=== PATIENT | female | born 2000 | race Caucasian/White ===

== ENCOUNTER 2018-01-14 12:06 | Emergency (ER) | payer OTHER ==
[2018-01-14] MEDS ORDERED: Nitrazine Tape 1 ROLL ONE (12:24)
[2018-01-14] MEDS ORDERED: Sodium Chloride 0.9% 2,000 ML ONE (12:29)
== END 2018-01-14 13:22 | disposition home or self-care (01) ==
LOC: NAV ERS 12:06
DX: Z77.011 Contact with and (suspected) exposure to lead (principal); F41.9 Anxiety disorder, unspecified; F32.9 Major depressive disorder, single episode, unspecified; F90.9 Attention-deficit hyperactivity disorder, unspecified type; Z87.891 Personal history of nicotine dependence; Z79.899 Other long term (current) drug therapy
CPT/HCPCS: 99283; J7050